=== PATIENT | male | born 1985 | race Caucasian/White ===

== ENCOUNTER → 2023-01-18 07:54 | Outpatient (BNVA) | payer OTHER, SELFPAY | PROVIDERS: Visit Provider Orthopaedic Surgery | DX: S22.080A Wedge compression fracture of T11-T12 vertebra, initial encounter for closed fracture (principal); W13.2XXA Fall from, out of or through roof, initial encounter | CPT/HCPCS: 72070; 99204 ==

== ENCOUNTER 2023-01-18 15:52 | Outpatient (CLI) | payer OTHER, SELFPAY | END 2023-01-18 15:53 | disposition home or self-care (01) | LOC: SPT 15:53 | PROVIDERS: Visit Provider Orthopaedic Surgery | DX: Z46.89 Encounter for fitting and adjustment of other specified devices (principal); S22.080D Wedge compression fracture of T11-T12 vertebra, subsequent encounter for fracture with routine healing; X58.XXXD Exposure to other specified factors, subsequent encounter | CPT/HCPCS: 97760; L0456 ==

== ENCOUNTER → 2023-03-01 08:08 | Outpatient (BNVA) | payer OTHER, SELFPAY | PROVIDERS: Visit Provider Orthopaedic Surgery | DX: S22.089S Unspecified fracture of T11-T12 vertebra, sequela (principal); X58.XXXS Exposure to other specified factors, sequela; M54.2 Cervicalgia | CPT/HCPCS: 72070; 99214 ==

== ENCOUNTER 2023-04-03 07:02 | Outpatient (CLI) | payer OTHER, SELFPAY ==
--- NOTE | 2023-04-03 07:15 | MR_ITS ---
WS: [id number] MRI CERVICAL SPINE NONCONTRAST HISTORY: cervical pain COMPARISON: 11/30/2014 Technique: Multiplanar, multisequence noncontrast imaging of the cervical spine. Posterior cervical alignment is normal. No marrow edema or fracture. Signal within the cervical cord is normal. Visualized posterior fossa is unremarkable. Craniocervical junction, C1 and C2 relationship, odontoid process and soft tissues are normal. C2-C3: Normal. C3-C4: Mild annular disc bulging with bilateral disc osteophyte complexes in the foramina, LEFT great er than RIGHT. There is near disc osteophyte contact on the cord. Mild central and bilateral foramina l stenosis. C4-C5: Small foraminal osteophytes. No stenosis. C5-C6: Very minimal facet arthritis and foraminal osteophytes. No stenosis. C6-C7: Tiny central disc protrusion. No stenosis. C7-T1: Normal. Paraspinal soft tissue are normal. IMPRESSION: 1. Moderate-sized bilateral disc osteophyte complexes at C3-4 with mild progression since the prior s tudy of 11/30/2014. Mild central and bilateral foraminal stenosis. 2. No fractures. 3. Otherwise mild facet joint arthritis and osteophytosis as above.
--- NOTE | 2023-04-03 08:00 | MR_ITS ---
WS: [id number] MRI LUMBAR SPINE NONCONTRAST HISTORY: cervical pain COMPARISON: 07/29/2018 TECHNIQUE: Sagittal and axial multisequence imaging is submitted. Normal lumbar alignment with no compression fractures or marrow edema. Mild disc space narrowing and desiccation at L1-L2 and L5-S1. No fractures or marrow edema. Very slig ht anterior wedging of L1 similar to the prior study Conus terminates normally at L1-2 disc level. L1-L2: Normal. L2-L3: Normal. L3-L4: Mild annular disc bulging. Ligamentum flavum and facet arthritis. Small amount of fluid in the facet joints. No significant stenosis. L4-L5: Mild ligamentum flavum and facet arthritis. Disc encroachment upon the traversing L5 nerve gerard ts. Slightly greater contact on the LEFT L5 nerve root. Mild subarticular recess encroachment. L5-S1: Diffuse annular disc bulging with mild osteophytic ridging. LEFT paracentral disc protrusion c ontacts the LEFT S1 nerve root. Disc protrusion extends into the LEFT foramen with moderate foraminal stenosis. Centrally there is a very tiny disc protrusion which encroaches but does not displace the RIGHT S1 nerve root. IMPRESSION: 1. L5-S1: Moderate LEFT foraminal stenosis due to disc protrusions and facet arthritis. 2. L5-S1: LEFT paracentral disc protrusion contacts the LEFT S1 nerve root and extends into the LEFT foramen causing LEFT foraminal stenosis. 3. Tiny central disc protrusion at L5-S1 encroaches but does not displace the RIGHT S1 nerve root. 4. L4-5: Very slight disc encroachment upon the subarticular recesses contacting the L5 nerve root. 5. No acute fracture.
== END 2023-04-03 07:03 | disposition home or self-care (01) ==
LOC: RAD 07:02
PROVIDERS: PCP Family Medicine; Visit Provider Orthopaedic Surgery
DX: M47.817 Spondylosis without myelopathy or radiculopathy, lumbosacral region (principal); M51.27 Other intervertebral disc displacement, lumbosacral region; M48.07 Spinal stenosis, lumbosacral region; M25.78 Osteophyte, vertebrae; M48.02 Spinal stenosis, cervical region; M47.812 Spondylosis without myelopathy or radiculopathy, cervical region
CPT/HCPCS: 72141; 72148

== ENCOUNTER 2023-04-03 07:03 | Outpatient (CLI) | payer OTHER, SELFPAY ==
--- NOTE | 2023-04-03 08:45 | MR_ITS ---
WS: [id number] MRI THORACIC SPINE noncontrast. HISTORY: thoracic pain COMPARISON: 11/06/2019 TECHNIQUE: Multiplanar sequences are performed in sagittal and axial planes. Disc osteophyte at C3-4 contacting the ventral cord. Mild curvature and scoliosis of the thoracic spine. There is a focal kyphosis at T11-12 with mild ant erior wedging of T11 and T12. Progression of the anterior wedging at T12 along with increased T1 and T2 signal. No increased STIR signal. Increasing T1 signal is probably due to fatty marrow change. Ant erior wedging by approximately 10%, T12 greater than T11. T1-2: Normal. T2-3: Shallow RIGHT foraminal osteophyte without stenosis. T3-4: Shallow LEFT foraminal osteophyte. No stenosis. T4-5: Normal. T5-6: Normal. T6-7: RIGHT foraminal osteophyte without significant stenosis. T7-8: Moderate size RIGHT paracentral disc protrusion contacting the RIGHT lateral thecal sac with de formity. No high-grade stenosis prior T8-9: Bilateral mild facet arthritis. T9-10: Mild bilateral facet arthritis and foraminal narrowing. T10-11: Bilateral facet arthritis and mild foraminal narrowing. T11-12: Mild annular disc bulging with osteophytic ridging. There is mild disc and osteophyte encroac hment toward the central canal. Shallow central disc protrusion contacts the thoracic cord. Mild cent ral and bilateral foraminal stenosis. Mild bilateral facet arthritis. IMPRESSION: 1. Focal kyphosis at T11-12 with chronic mild anterior wedging by approximately 10%. Mild progression of the T12 anterior wedging since 11/06/2019. 2. T11-12: Mild disc bulging and osteophytic ridging with slight retropulsion of the vertebral bodies . Mild central and bilateral foraminal stenosis. 3. T7-8: Moderate RIGHT paracentral disc protrusion contacting the RIGHT lateral thecal sac and defor marva the thecal sac. 4. T9-10 and T11-12: Bilateral facet arthritis and mild foraminal narrowing.
== END 2023-04-03 07:04 | disposition home or self-care (01) ==
PROVIDERS: PCP Family Medicine; Visit Provider Orthopaedic Surgery
DX: M54.9 Dorsalgia, unspecified (principal); M51.34 Other intervertebral disc degeneration, thoracic region; M51.24 Other intervertebral disc displacement, thoracic region; M47.894 Other spondylosis, thoracic region
CPT/HCPCS: 72146

== ENCOUNTER → 2023-04-10 08:34 | Outpatient (BNVA) | payer OTHER, SELFPAY | PROVIDERS: PCP Family Medicine; Visit Provider Physician Assistant | DX: M96.1 Postlaminectomy syndrome, not elsewhere classified (principal); M50.30 Other cervical disc degeneration, unspecified cervical region; M51.34 Other intervertebral disc degeneration, thoracic region | CPT/HCPCS: 99214 ==

== ENCOUNTER 2023-12-24 17:59 | Emergency (ER) | payer OTHER, SELFPAY ==
[2023-12-24 18:05] VITALS: BP 116/80; PULSE 72; TEMP 37; O2SAT 98; BMI 25.8
--- NOTE | 2023-12-24 18:20 | ED_ITS ---
HPI - Eye Problem 2 General: Chief complaint: Eye Problems Stated complaint: Left eye injury Time Seen by Provider: 12/24/23 18:14 Source: patient and family Mode of arrival: ambulatory Limitations: no limitations History of Present Illness: Patient is a nice 38-year-old male presents to ED today for evaluation of laceration/abrasion to his left eyebrow that he sustained just prior to arrival after one of his pitbull puppies accidentally scratched him. He states he was not scratched inside his eye and this does not hurt. No visual changes. Just here for the eyelid abrasion/laceration. Tetanus is UTD. chief complaint: other (eye lid laceration/abrasion) Onset (ago): hour(s) Onset description: sudden Location: left eye Place: home Mechanism: direct trauma Severity: mild Associated symptoms: Reports no associated symptoms Treatments Prior to Arrival: none Related Data: Patient tetanus UTD: Yes Review of Systems 2 Eyes: Reports: other (no fb sensation); Denies: change in vision, blurry vision, eye discomfort, eye discharge or eye redness Physical Exam 2 Const: COMMON NORMALS: no acute distress, average body habitus, no limitations, healthy appearing, alert and well nourished Eye: COMMON NORMALS: Equal, round and reactive pupils present, EOMs intact bilaterally and conjunctivae normal GENERAL EYE: normal light reflex V ISUAL ACUITY: Yes acuity normal PERIORBITAL: periorbital findings normal E YELID: eyelid abnormality (small non-gaping laceration L upper eyelid) left upper eyelid CONJUNCTIVA: Yes conjunctivae normal PUPIL: Yes Equal, round and reactive pupils present DIRECT OPHTHALMOSCOPY: Yes normal light reflex EYE IMAGES: 1. small laceration to fold of L upper eyelid; laceration does not gap open unless I pull it apart to inspect; not through and through-superficial; wound edges naturally approximate given location and skin fold Neuro: SENSORIUM/ORIENTATION: Yes alert Course 2 Vital Signs: Vital signs: Vital Signs Temperature 98.6 F 12/24/23 18:05 Pulse Rate 72 12/24/23 18:05 Blood Pressure 116/80 12/24/23 18:05 Pulse Oximetry 98 12/24/23 18:05 Oxygen Delivery Me thod Room Air 12/24/23 18:05 MDM - Eye Problem Medical Decision Making Patient with small non-gaping laceration to L upper eyelid fold. Wound edges naturally anatomically approximate given it lies within a skin fold. Discussed suture repair but patient feels sutures would be bothersome. I think cosmetic outcomes are going to be similar either way. He has opted to leave open at this time. Will place on prophylactic antibiotics. Return precautions given. No radiology studies performed this visit Discharge Plan Discharge Patient Disposition: Home Clinical Impression: Eyelid laceration, left Qualifiers: Encounter type: initial encounter Qualified Code(s): S01.112A - Laceration without foreign body of left eyelid and periocular area, initial encounter Condition: Stable Prescriptions: New amoxicillin-pot clavulanate 875-125 mg tablet 1 tab PO BID Qty: 14 0RF No Action sertraline 100 mg tablet 100 mg PO DAILY pregabalin 75 mg capsule 75 mg PO DAILY montelukast 10 mg tablet 10 mg PO DAILY hydrocodone-acetaminophen 7.5-325 mg tablet 1 tab PO BID PRN doxepin 25 mg capsule 25 mg PO DAILY diclofenac potassium 50 mg tablet 50 mg PO DAILY cholecalciferol (vitamin D3) 50 mcg (2,000 unit) capsule 50 mcg PO DAILY (DME) TLSO Brace See Rx Instructions .Route .MEDSUPPLY Qty: 1 0RF Rx Instructions: As directed Discharge Orders: Discharge ED (Routine); Ordered 12/24/23 Ordered By: Iman Mckeon Referrals: Cynthia Lucio MD [Primary Care Provider] - Activity Restrictions/Additional Instructions: As we discussed using a Q-tip to keep clean with warm soapy water 2-3 times daily. Fill your antibiotics tomorrow. They have been sent to the [facility] pharmacy. You have been given a dose prior to discharge today. Monitor for signs of infection such as redness, swelling, drainage, worsening pain, or any other concerns you may have. Skin edges should heal in approximate well over the next 2 to 3 days. Avoid rubbing the eye. Coding Level of Care Code ED Office Machine Service Supervisor for Capri Jacobs
[2023-12-24] MEDS: amoxicillin-clav 875-125 mg Tablet 1 TAB PO (18:51)
[2023-12-24 18:57] VITALS: RESP 16
== END 2023-12-24 18:58 | disposition home or self-care (01) ==
PROVIDERS: Emergency Provider Physician Assistant; PCP Family Medicine
DX: S01.112A Laceration without foreign body of left eyelid and periocular area, initial encounter (principal); W54.8XXA Other contact with dog, initial encounter
CPT/HCPCS: 99283